=== PATIENT | male | born 1965 | race Asian ===

== ENCOUNTER 2017-08-16 21:09 | Emergency (ER) | payer BC ==
[2017-08-16 21:15] VITALS: TEMP 98.4; BMI 25.5
--- NOTE | 2017-08-16 21:21 | PDOC ---
History of Present Illness - General History Source: Patient Exam Limitations: No Limitations <Joey Heath - Last Filed: 08/16/17 21:37> - General History Source: Patient Exam Limitations: No Limitations <Jessica Erazo I - Last Filed: 08/16/17 22:01> - General Chief Complaint: Chest Pain Stated Complaint: chest discomfort Time Seen by Provider: 08/16/17 21:19 - History of Present Illness Initial Comments: 08/16/17 21:37 The patient is a 52 year old male, with a significant past medical history of hypertension, who presents to the emergency department with chest discomfort that began approx. one hour ago. The patient reports noticing a slight feeling of chest discomfort after having dinner with his . He reports that his checked his pulse and noticed an irregular beat so she advised the patient come to the ED for evaluation. The patient denies diaphoresis, dizziness, or blurry vision. He denies recent nausea or vomit. He denies shortness of breath, palpitations or calf tenderness. Primary Care Physician: Dr. Wilber Camejo PAST MEDICAL HISTORY: Hypertension PAST SURGICAL HISTORY: no significant history FAMILY HISTORY: Patient reports his mother had a mild stroke. SOCIAL HISTORY: Pt lives with family and is employed. MEDICATIONS: reviewed ALLERGIES: As per nursing notes ROS General: No fevers or chills, no weakness, no weight loss HEENT: No change in vision. No sore throat,. No ear pain CardioVascular: +Chest discomfort. No chest pain or shortness of breath Respiratory: No cough, or wheezing. Gastrointestinal: no nausea, vomiting, diarrhea or constipation, No rectal bleeding Musculoskeletal: No joint or muscle pain or swelling Neurologic: No headache, vertigo, dizziness or loss of consciousness Skin: No rashes or easy bruising All other systems reviewed and normal P/E General: Well-nourished well-developed individual, no acute distress Eyes::Pupils equal reactive and round, extraocular motion intact Chest: Nontender to palpation Cardiac: S1-S2 normal, regular rate and rhythm, no murmurs rubs or gallops Respiratory: Lungs clear to auscultation bilateral Abdomen: Soft, nondistended, normal bowel sounds, nontender to palpation diffusely Extremities: Warm, dry, no cyanosis, clubbing, or edema Skin: No rashes Neuro: Alert and oriented x3, nonfocal exam, grossly intact, normal gait (Joey Heath) 08/16/17 21:58 A portion of this note was documented by scribe services under my direction. I have reviewed the details of the note, within reason, and agree with the documentation. The case summary and management plan written by me. This is a 52-year-old male with history of hypertension otherwise no cardiac risk factors who comes in complaining of approximately 2 hours of discomfort in his chest post eating dinner tonight. Patient denies any associated symptoms of shortness of breath, diaphoresis radiation or any other complaints. Patient had a cardiogram that showed normal sinus rhythm at a rate is [address]-T wave changes normal EKG. Patient had a troponin that was negative. Patient's heart score is 2. Patient discharged told to follow-up with his primary care doctor tomorrow (Jessica Erazo I) Past History <Joey Heath - Last Filed: 08/16/17 21:37> - Past Medical History Anemia: No Asthma: No Cancer: No Cardiac Disorders: No CVA: No COPD: No CHF: No Dementia: No Diabetes: No GI Disorders: No Disorders: No HTN: Yes Hypercholesterolemia: No Liver Disease: No Seizures: No Thyroid Disease: No - Surgical History Abdominal Surgery: Yes Appendectomy: Yes Cardiac Surgery: No Cholecystectomy: No Lung Surgery: No Neurologic Surgery: No Orthopedic Surgery: No - Suicide/Smoking/Psychosocial Hx Smoking History: Former smoker Have you smoked in the past 12 months: No If you are a former smoker, when did you quit?: 1992 Information on smoking cessation initiated: No Hx Alcohol Use: Yes (socially) Drug/Substance Use Hx: No Substance Use Type: None Hx Substance Use Treatment: No <Jessica Erazo I - Last Filed: 08/16/17 22:01> - Past Medical History Allergies/Adverse Reactions: Allergies Allergy/AdvReac Type Severity Reaction Status Date / Time No Known Allergies Allergy Verified 08/16/17 21:15 Home Medications: Ambulatory Orders Amlodipine Besylate [Norvasc -] 5 mg PO DAILY 09/12/14 Cardiac Specific PMH - Complaint Specific PMHX Pacemaker: No <Jessica Erazo I - Last Filed: 08/16/17 22:01> - Vital Signs Last Vital Signs Temp Pulse Resp BP Pulse Ox 98.4 F 75 20 126/80 99 08/16/17 21:12 08/16/17 21:12 08/16/17 21:12 08/16/17 21:12 08/16/17 21:12 Heart Score/ECG Review - History History: Slightly suspicious - Electrocardiogram EKG: Normal - Age Age: 45-65 - Risk Factors Risk Factors Heart Score: Yes Hx Hypertension Based on the list above the patient has:: 1-2 risk factors - Troponin Troponin: </= normal limit - Score Heart Score - Total: 2 <Jessica Erazo I - Last Filed: 08/16/17 22:01> *DC/Admit/Observation/Transfer <Joey Heath - Last Filed: 08/16/17 21:37> - Discharge Dispostion Admit: No <Jessica Erazo I - Last Filed: 08/16/17 22:01> Diagnosis at time of Disposition: Chest discomfort - Discharge Dispostion Disposition: HOME Condition at time of disposition: Stable - Referrals Referrals: Wilber Camejo [Primary Care Provider] - - Patient Instructions Additional Instructions: It is important that you call your doctor tomorrow morning and follow-up with your doctor for additional workup and possibly a stress test. Return to the emergency department immediately with ANY new, persistent or worsening symptoms. Continue any medications as previously prescribed by your physician. You should follow up with your primary doctor as soon as possible regarding today's emergency department visit. . Please make sure your doctor reviews the results of your emergency evaluation. Thank you for coming to the Emergency Department today for your care. It was a pleasure to see you today. Please note that your evaluation is INCOMPLETE until you follow-up with your doctor. - Attestations Scribe Attestion: 08/16/17 21:43 Documentation prepared by Joey Heath, acting as medical accountant for Jessica Erazo MD. (Joey Heath)
[2017-08-16 22:04] LABS: CPK 121 IU/L (39-308)
[2017-08-16 22:17] LABS: TROPONIN I (DFP) < 0.03 ng/ml (0.03-0.50)
[2017-08-16 22:45] VITALS: BP 130/70; PULSE 76
--- NOTE | 2017-08-18 23:03 | EKG ---
Test Reason : Blood Pressure : / mmHG Vent. Rate : 075 BPM Atrial Rate : 075 BPM P-R Int : 148 ms QRS Dur : 100 ms QT Int : 398 ms P-R-T Axes : 062 046 028 degrees QTc Int : 444 ms NORMAL SINUS RHYTHM NORMAL ECG NO PREVIOUS ECGS AVAILABLE REPEAT EKG IF CLINICALLY INDICATED Confirmed by CRISTÓBAL HERNANDEZ MD ([id number]) on 08/18/2017 11:02:54 PM Referred By: KAREN BUNDY Confirmed By:CRISTÓBAL HERNANDEZ MD
== END 2017-08-16 22:38 | disposition home or self-care (01) ==
LOC: FER 21:09
DX: R07.9 Chest pain, unspecified (principal); I10 Essential (primary) hypertension; Z87.891 Personal history of nicotine dependence
CPT/HCPCS: 36415; 82550; 84484; 93005; 99283-25